=== PATIENT | female | born 1955 | race Caucasian/White ===

== ENCOUNTER 2020-03-08 15:47 | Outpatient (CLI) | payer OTHER, SELFPAY ==
--- NOTE | ~2020-03-08 | XR_ITS ---
XR chest 2V 03/08/2020 16:19 Indication: Worsening shortness of breath. Cough and fever. Procedure: 2 view chest Comparison: No prior studies for comparison. Findings: Bibasilar airspace disease, compatible with pneumonia. Small pleural effusions. No pneumoth orax or edema. No acute osseous abnormality. Impression: 1: Bibasilar pneumonia with small effusions. Reviewed, dictated and finalized at location A. Impression: 1: Bibasilar pneumonia with small effusions.
[2020-03-08 16:41] LABS: Basophils Absolute Auto 0.1 K/mm3 (0.0-0.1); Basophils Percent Auto 0.4 % (0.2-1.2); Eosinophils Percent Auto 0.1 % (0-4.4); Hematocrit 34.1 % (37.0-47.0); Hemoglobin 10.7 g/dL (12.0-15.0); Immature Granulocyte Absolute 0.05 K/mm3 (0.00-0.031); Immature Granulocyte Percent A 0.4 % (0-0.5); Lymphocytes Absolute Auto 0.89 K/mm3 (0.9-3.2); Lymphocytes Percent Auto 7.6 % (18.3-44.2); Mean Corpuscular HGB Conc 31.4 g/dl (32-36); Mean Corpuscular Volume 92.4 fl (80-100); Mean Platelet Volume 9.6 fl (7.4-10.4); Monocytes Absolute Auto 1.1 K/mm3 (0.1-0.6); Monocytes Percent Auto 9.6 % (2.6-8.5); Neutrophils Absolute Auto 9.6 K/mm3 (1.3-6.7); Neutrophils Percent Auto 81.9 % (45.5-73.1); Platelet Count Result 237 k/mm3 (150-375); Red Blood Count 3.69 M/mm3 (4.2-5.4); White Blood Count 11.8 K/mm3 (4.5-10.0)
[2020-03-08 16:52] LABS: Alanine Aminotransferase 29 U/L (4-35); Albumin Level 3.9 g/dL (3.5-5.1); Alkaline Phosphatase 137 U/L (38-126); Aspartate Amino Transferase 33 U/L (14-36); Bilirubin,Total 1.7 mg/dL (0.2-1.3); Blood Urea Nitrogen 7 mg/dL (7-17); Carbon Dioxide 29 mmol/L (22-30); Chloride 98 mmol/L (98-107); Estimated Glomerular Filt Rate > 60; Glucose 99 mg/dL (65-105); Potassium 2.9 mmol/L (3.4-5.0); Sodium 134 mmol/L (137-145)
== END 2020-03-08 15:48 | disposition home or self-care (01) ==
LOC: ANHIMG 15:54
PROVIDERS: PCP Internal Medicine; Visit Provider Internal Medicine
DX: R50.9 Fever, unspecified (principal); J44.1 Chronic obstructive pulmonary disease with (acute) exacerbation; J18.9 Pneumonia, unspecified organism; J90 Pleural effusion, not elsewhere classified
CPT/HCPCS: 36415; 71046; 80053; 85025

== ENCOUNTER 2020-04-25 13:00 | Outpatient (CLI) | payer OTHER, SELFPAY ==
--- NOTE | ~2020-04-25 | XR_ITS ---
EXAMINATION: XR chest 2V DATE: 04/25/2020 13:17 INDICATION: Shortness of breath. Pulmonary edema. TECHNIQUE: Frontal and lateral views of the chest were obtained. COMPARISON: Chest 2 views 03/08/2020 FINDINGS: There are small pleural effusions. There are airspace opacities in right lower lobe. There is mild atelectasis in right mid and lower lung zones and left lower lung zone. A calcified left lung nodule is consistent with old granulomatous disease. No pneumothorax. The heart size is normal. A ca theter overlying left abdomen is likely a nephrostomy tube. There are old healed bilateral rib fractu res. There are likely changes of distal left clavicle resection. IMPRESSION: 1. Worsened airspace opacities in right lower lobe, consistent with atelectasis versus pneumonia. 2. Small pleural effusions. Reviewed, dictated and finalized at location A.
[2020-04-25 14:05] LABS: Basophils Absolute Auto 0.1 K/mm3 (0.0-0.1); Basophils Percent Auto 0.7 % (0.2-1.2); Eosinophils Absolute Auto 0.4 K/mm3 (0-0.3); Eosinophils Percent Auto 5.1 % (0-4.4); Hematocrit 35.1 % (37.0-47.0); Hemoglobin 10.9 g/dL (12.0-15.0); Immature Granulocyte Absolute 0.02 K/mm3 (0.00-0.031); Immature Granulocyte Percent A 0.3 % (0-0.5); Lymphocytes Percent Auto 18.4 % (18.3-44.2); Mean Corpuscular HGB Conc 31.1 g/dl (32-36); Mean Corpuscular Hemoglobin 27.2 pg (26-34); Mean Corpuscular Volume 87.5 fl (80-100); Monocytes Absolute Auto 0.7 K/mm3 (0.1-0.6); Monocytes Percent Auto 9.2 % (2.6-8.5); Neutrophils Percent Auto 66.3 % (45.5-73.1); Platelet Count Result 186 k/mm3 (150-375); Red Blood Count 4.01 M/mm3 (4.2-5.4); Red Cell Distribution Width 14.9 % (11.5-14.5); White Blood Count 7.6 K/mm3 (4.5-10.0)
[2020-04-25 14:09] LABS: Add Urine Microscopic? YES; Appearance Urine Clear (Clear); Bacteria Urine Trace /hpf; Bilirubin Urine Negative (Negative); Blood Urine 1+ (Negative); Color Urine Yellow (Yellow); Glucose Urine UA Negative (Negative); Ketones Urine Trace mg/dL (Negative); Leukocyte Esterase Ur Negative LEU/UL (NEGATIVE); Mucus Urine Rare /lpf; Nitrate Urine Negative (Negative); Protein Urine Negative (Negative); RBC Urine 0-2 /hpf (0-2); Specific Grav Ur 1.016 (1.001-1.035); Squamous Epithelial Cell Urine Rare /hpf (Few); Urobilinogen Urine Negative mg/dL (<2.0); WBC Urine 0-3 /hpf (0-3)
[2020-04-25 14:20] LABS: Alanine Aminotransferase 9 U/L (4-35); Albumin Level 3.9 g/dL (3.5-5.1); Alkaline Phosphatase 77 U/L (38-126); Aspartate Amino Transferase 21 U/L (14-36); Bilirubin,Total 0.6 mg/dL (0.2-1.3); Blood Urea Nitrogen 10 mg/dL (7-17); Carbon Dioxide 29 mmol/L (22-30); Chloride 101 mmol/L (98-107); Estimated Glomerular Filt Rate > 60; Glucose 85 mg/dL (65-105); Potassium 3.2 mmol/L (3.4-5.0); Sodium 135 mmol/L (137-145)
[2020-04-25 14:24] LABS: D Dimer 3.78 ug/mL (<0.48)
[2020-04-25 14:35] LABS: NT Pro B Type Natriuretic Pept 1130 PG/ML (5-100)
== END 2020-04-25 13:01 | disposition home or self-care (01) ==
PROVIDERS: PCP Internal Medicine; Visit Provider Internal Medicine
DX: R06.02 Shortness of breath (principal); R60.9 Edema, unspecified; R91.8 Other nonspecific abnormal finding of lung field; J90 Pleural effusion, not elsewhere classified
CPT/HCPCS: 36415; 71046; 80053; 81001; 83880; 85025; 85380

== ENCOUNTER 2020-04-26 13:19 | Outpatient (CLI) | payer OTHER, SELFPAY ==
--- NOTE | ~2020-04-26 | US_ITS ---
EXAMINATION: US venous doppler [facility] DATE: 04/26/2020 14:13 INDICATION: Bilateral lower limb edema TECHNIQUE: [place] scale images without and with compression and Doppler images of the bilateral lower e xtremity veins were obtained. COMPARISON: None FINDINGS: The right common femoral vein, profunda femoral vein, femoral vein, popliteal vein, peroneal trunk, p osterior tibial veins, and greater saphenous vein are patent. The left common femoral vein, profunda femoral vein, femoral vein, popliteal vein, peroneal trunk, po sterior tibial veins, and greater saphenous vein are patent. IMPRESSION: 1. Patent bilateral lower extremity veins. No evidence of deep venous thrombosis. Reviewed, dictated and finalized at location A. IMPRESSION: 1. Patent bilateral lower extremity veins. No evidence of deep venous thrombosi s.
== END 2020-04-26 13:20 | disposition home or self-care (01) ==
PROVIDERS: PCP Internal Medicine; Visit Provider Internal Medicine
DX: R60.9 Edema, unspecified (principal)
CPT/HCPCS: 93970

== ENCOUNTER 2020-06-24 10:48 | Outpatient (CLI) | payer OTHER, SELFPAY ==
--- NOTE | ~2020-06-24 | CT_ITS ---
EXAMINATION: CT chest w con DATE: 06/24/2020 11:39 INDICATION: Recurrent right lower lobe pneumonia TECHNIQUE: Transaxial computed tomographic images of the chest were obtained after the administration of 75 cc of Omnipaque 350 intravenous contrast. The dose-length product (DLP) was 113.67 mGy-cm. Ite rative reconstruction was used. COMPARISON: None FINDINGS: There is severe emphysema. There is subpleural atelectasis or scarring in the right lower l obe. No suspicious pulmonary nodule is identified. A calcified subpleural nodule of the left lower lo be is consistent with old granulomatous disease. There is no pleural effusion or pneumothorax. No pat hologically enlarged thoracic lymph nodes are identified. The heart size is normal. Healed right-side d rib fractures are noted. There is mild thoracic spondylosis. IMPRESSION: 1. Atelectasis or scarring of the right lower lobe without suspicious findings. 2. Severe emphysema. Reviewed, dictated and finalized at location A.
[2020-06-24 11:07] LABS: Basophils Percent Auto 0.4 % (0.2-1.2); Eosinophils Absolute Auto 0.2 K/mm3 (0-0.3); Eosinophils Percent Auto 2.2 % (0-4.4); Hematocrit 34.5 % (37.0-47.0); Hemoglobin 11.1 g/dL (12.0-15.0); Immature Granulocyte Absolute 0.03 K/mm3 (0.00-0.031); Immature Granulocyte Percent A 0.4 % (0-0.5); Lymphocytes Absolute Auto 2.43 K/mm3 (0.9-3.2); Lymphocytes Percent Auto 29.1 % (18.3-44.2); Mean Corpuscular HGB Conc 32.2 g/dl (32-36); Mean Corpuscular Hemoglobin 28.2 pg (26-34); Mean Corpuscular Volume 87.6 fl (80-100); Mean Platelet Volume 9.4 fl (7.4-10.4); Monocytes Absolute Auto 0.8 K/mm3 (0.1-0.6); Monocytes Percent Auto 9.8 % (2.6-8.5); Neutrophils Absolute Auto 4.9 K/mm3 (1.3-6.7); Neutrophils Percent Auto 58.1 % (45.5-73.1); Platelet Count Result 269 k/mm3 (150-375); Red Blood Count 3.94 M/mm3 (4.2-5.4); Red Cell Distribution Width 16.4 % (11.5-14.5); White Blood Count 8.3 K/mm3 (4.5-10.0)
[2020-06-24 11:20] LABS: Alanine Aminotransferase 17 U/L (4-35); Alkaline Phosphatase 86 U/L (38-126); Anion Gap 7 mmol/L (8-16); Aspartate Amino Transferase 20 U/L (14-36); Bilirubin,Total 0.5 mg/dL (0.2-1.3); Blood Urea Nitrogen 18 mg/dL (7-17); Calcium 9.4 mg/dL (8.4-10.2); Carbon Dioxide 31 mmol/L (22-30); Chloride 99 mmol/L (98-107); Cholesterol 189 mg/dL (0-200); Estimated Glomerular Filt Rate > 60; Glucose 69 mg/dL (65-105); HDL Direct 73 mg/dL; Potassium 3.2 mmol/L (3.4-5.0); Sodium 137 mmol/L (137-145); Triglycerides 97 mg/dL (<150)
[2020-06-24 11:29] LABS: Estimated Glomerular Filt Rate > 60
[2020-06-24 11:31] LABS: LDL Cholesterol Direct 89 mg/dL
== END 2020-06-24 10:49 | disposition home or self-care (01) ==
LOC: ANHIMG 10:51
PROVIDERS: PCP Internal Medicine; Visit Provider Internal Medicine
DX: J18.9 Pneumonia, unspecified organism (principal); J96.11 Chronic respiratory failure with hypoxia; J43.9 Emphysema, unspecified
CPT/HCPCS: 36415; 71260; 80053; 80061; 85025; Q9967

== ENCOUNTER 2020-08-21 15:15 | Emergency (ER) | payer MEDICARE, OTHER, SELFPAY ==
--- NOTE | ~2020-08-21 | XR_ITS ---
EXAMINATION: XR chest 1V portable INDICATION: Chest pain TECHNIQUE: Portable AP chest at 1623 hours COMPARISON: 04/25/2020 FINDINGS: The lungs are free of acute opacities. No pleural effusion or pneumothorax is identified. T he cardiomediastinal silhouette is normal. Healed bilateral rib fractures are noted. IMPRESSION: 1. No acute cardiopulmonary abnormality. Reviewed, dictated and finalized at location A.
--- NOTE | ~2020-08-21 | CT_ITS ---
EXAMINATION: CT abdomen pelvis w con EXAM DATE: 08/21/2020 17:57 INDICATION: Weakness, nausea and vomiting. Gastric surgery 3 days ago. TECHNIQUE: Spiral CT of the abdomen and pelvis was performed following intravenous injection of 100 m L Omnipaque 350. Axial, coronal and sagittal images were reviewed. The dose-length product (DLP) fo r this examination was 249.69 mGy-cm. The exposure was tailored according to patient size (auto mA e xposure control), and iterative reconstruction (ASIR) was used as additional dose reduction technique . There is no prior study for comparison. FINDINGS: There are laparotomy casi are. There is inflammation and edema along the gastric body, a nd also along the distal aspect of the esophagus. There is pocket of fluid below the duodenal sweep, in the retroperitoneum, region measuring about 2 x 6 cm. No free intraperitoneal air or abscess. The liver, spleen, adrenal glands and pancreas are unremarkable. Gallbladder is unremarkable. No bilia ry obstruction. Portal and splenic veins are patent. Kidneys enhance symmetrically. There is no hy dronephrosis. Enhancing bilateral ureteral urothelium, could indicate upper urinary tract infection, or could be reactive. The uterus is unremarkable. The bladder is collapsed with Madrid catheter bal loon anchor inside. There is no retroperitoneal or pelvic lymphadenopathy. There is mild to modera te scattered arteriosclerotic disease. The appendix is normal. There is partial colectomy with intact rectosigmoid anastomosis site. No f ree intraperitoneal gas. The heart is normal in size. There are no pericardial or pleural effusion s. There is basilar atelectasis bronchiectasis. There are no osteoblastic or osteolytic lesions johnny ntified. IMPRESSION: 1. Gastric body edema, could be due to recent surgical site. 2. Retroperitoneal fluid pocket, could be postoperative seroma but infected fluid not excludable. 3. Distal esophageal edema probably esophagitis. 4. Bilateral urothelial enhancement, correlate with urinalysis. Ureteral tubes and Madrid catheter in position. Reviewed, dictated and finalized at location A. IMPRESSION: 1. Gastric body edema, could be due to recent surgical site. 2. Retroperitoneal fluid pocket, could be postoperative seroma but infected fl uid not excludable. 3. Distal esophageal edema probably esophagitis. 4. Bilateral urothelial enhancement, correlate with urinalysis. Ureteral tubes and Madrid catheter in position.
[2020-08-21 15:37] VITALS: BP 128/58; PULSE 100; RESP 14; TEMP 36.4; O2SAT 100
--- NOTE | 2020-08-21 15:43 | ECG_ITS ---
Measurements Intervals [place] Rate: 94 P: 47 ND: 103 QRS: 37 QRSD: 74 T: -18 QT: 380 QTc: 476 Interpretive Statements SINUS RHYTHM WITH SHORT ND INTERVAL INCOMPLETE RIGHT BUNDLE BRANCH BLOCK BORDERLINE ST-T WAVE ABNORMALITY- DIFFUSE LEADS BASELINE ARTIFACT- I, II, AVR, AVL, V1, V6 BORDERLINE ECG Electronically Signed On 08-21-2020 15:59:50 CDT by Moreno Agarwal D.O.
--- NOTE | 2020-08-21 15:55 | ED.GENADULT ---
HPI - General Adult General Chief complaint: Recheck/Abnormal Lab/Rx Stated complaint: WEAK,N/V S/P GASTRIC SURGERY AT [facility] Time Seen by Provider: 08/21/20 15:47 Source: patient and family Mode of arrival: ambulatory Limitations: no limitations History of Present Illness HPI narrative: 64 years old white female brought to the emergency room by her daughter because urine leaking around the Madrid catheter, with burning sensation, nausea and vomiting started last night. Patient denies any fever, chills, abdominal pain, chest pain, shortness of breath, back pain. Patient is a status post reverse colostomy, bladder repair, hernia repair at [facility]. Patient was admitted on August 15 and was discharged yesterday. Patient had Madrid catheter placed on August 15. Last night patient developed nausea, frequent vomiting, urine leaking from the urethra around the Madrid catheter, severe burning sensation at the urethra. Patient on 2 L home oxygen, Patient was referred to our emergency room today by her surgeon at [facility], Alin Tamez. History of hypertension, COPD. Does not take blood thinners. Does not smoke or drink. Multiple negative COVID 19 test in the last few days Related Data Home Medications Medication Instructions Recorded Confirmed acetaminophen 1,000 mg BID 08/21/20 08/21/20 clonazepam BID 08/21/20 enoxaparin DAILY 08/21/20 fluticasone propionate [Flovent 2 INHALATION BID 08/21/20 HFA] fluticasone propionate [Flovent INHALATION 08/21/20 HFA] guaifenesin mg PO BID 08/21/20 hydrochlorothiazide DAILY 08/21/20 ipratropium-albuterol ml INHALATION QID 08/21/20 lisinopril DAILY 08/21/20 melatonin mg HS 08/21/20 metoprolol tartrate BID 08/21/20 oxycodone TID PRN 08/21/20 potassium chloride [Klor-Con M20] meq PO DAILY 08/21/20 tiotropium-olodaterol [Stiolto 1 INHALATION DAILY 08/21/20 Respimat] trazodone HS 08/21/20 Allergies Allergy/AdvReac Type Severity Reaction Status Date / Time No Known Allergies Allergy Unverified 04/03/16 10:22 Review of Systems Review of Systems: Narrative: CONSTITUTIONAL: Denies fever, chills, or sweats. EYES: Denies visual changes, redness, or discharge. ENT: Denies rhinorrhea, congestion, sore throat, or otalgia. CARDIOVASCULAR: Denies chest pain, palpitations, or edema. RESPIRATORY: Denies cough or dyspnea. GASTROINTESTINAL: Denies abdominal pain, nausea, vomiting, or diarrhea. GENITOURINARY: Severe burning sensation at the urethra SKIN: Denies rash or itching. MUSCULOSKELETAL: Denies back pain, joint pain, or myalgia. NEUROLOGIC: Denies headache, numbness, or weakness. PSYCHIATRIC: Denies anxiety or depression. [facility] Past Medical History Medical History (Updated 08/21/20 @ 18:37 by Kenton Denise MD) COPD (chronic obstructive pulmonary disease) Hypertension Social History Social History (Updated 08/21/20 @ 18:10 by Kenton Denise MD) Social History: Patient does not smoke or drink Second hand tobacco smoke exposure: No Gender identity (if verbalized by the patient): Female Exam Narrative: Exam Narrative: General appearance: Well-developed, well-nourished does not look in pain or distress Skin: Normal color Head: Normocephalic, nontraumatic Eyes: Clear conjunctiva ENT: Oropharynx normal, ears normal, nose normal Neck: Supple, nontender Chest and respiratory: Airway patent, no respiratory distress, no accessory muscle use Heart: Regular rate/rhythm Abdomen: Soft, mild diffuse tenderness, no organomegaly, quiet bowel sounds, stableS surgical wound, clean and dry Vascular: Normal peripheral pulses, normal capillary refill. Musculoskeletal: Normal range of motion, nontender back Neurologic: Alert and oriented ?3, [employer] is normal as tested, no gross motor deficit
[2020-08-21 16:27] VITALS: BP 128/58; PULSE 92; RESP 18; TEMP 36.4; O2SAT 96
--- NOTE | 2020-08-21 16:30 | PC.NURSE ---
patient here this ED with c/o N/V and abdomen pain. see triage notes. alert. oriented but does appear weak. daughter at bedside. gives patient's hx and answers questions for patient. patient was admitted to [facility]. had 3-4 abdominal surgeries during her admission there. discharged yesterday. denies known fever at home. daughter has been talking with nursing staff and physicians at [facility]. patient was advised to come there for admission but they do not have any available beds. patient and daughter both state they were advised to come to the closest ED to be stablized for transfer to [facility]. Not here for admission. ED provider talking with daughter now.
--- NOTE | 2020-08-21 16:32 | PC.NURSE ---
Attempts x2 per this RN for IV start unsuccessful. . Labs drawn per MAITE Garces.
[2020-08-21 16:39] LABS: Basophils Absolute Auto 0.1 K/mm3 (0.0-0.1); Basophils Percent Auto 0.5 % (0.2-1.2); Eosinophils Percent Auto 0.4 % (0-4.4); Hematocrit 26.9 % (37.0-47.0); Hemoglobin 8.8 g/dL (12.0-15.0); Immature Granulocyte Absolute 0.13 K/mm3 (0.00-0.031); Immature Granulocyte Percent A 1.2 % (0-0.5); Lymphocytes Absolute Auto 1.22 K/mm3 (0.9-3.2); Lymphocytes Percent Auto 11.4 % (18.3-44.2); Mean Corpuscular HGB Conc 32.7 g/dl (32-36); Mean Corpuscular Hemoglobin 29.9 pg (26-34); Mean Corpuscular Volume 91.5 fl (80-100); Mean Platelet Volume 9.1 fl (7.4-10.4); Monocytes Absolute Auto 0.8 K/mm3 (0.1-0.6); Monocytes Percent Auto 7.7 % (2.6-8.5); Neutrophils Absolute Auto 8.5 K/mm3 (1.3-6.7); Neutrophils Percent Auto 78.8 % (45.5-73.1); Platelet Count Result 442 k/mm3 (150-375); Red Blood Count 2.94 M/mm3 (4.2-5.4); Red Cell Distribution Width 15.1 % (11.5-14.5); White Blood Count 10.7 K/mm3 (4.5-10.0)
[2020-08-21 16:48] LABS: INR 0.9; Prothrombin Time 12.3 Seconds (11.1-14.7)
[2020-08-21 16:49] LABS: Partial Thromboplastin Time 26.2 SECONDS (22.3-36.8)
--- NOTE | 2020-08-21 16:49 | PC.NURSE ---
patient is difficulty stick. this RN attempted x 2 without success. Paresh RN at bedside and unsuccessful x 2. will attempt with Ultrasound.
[2020-08-21 16:57] LABS: Alanine Aminotransferase 20 U/L (4-35); Albumin Level 3.6 g/dL (3.5-5.1); Alkaline Phosphatase 145 U/L (38-126); Anion Gap 15 mmol/L (8-16); Aspartate Amino Transferase 27 U/L (14-36); Bilirubin,Total 0.7 mg/dL (0.2-1.3); Blood Urea Nitrogen 6 mg/dL (7-17); Calcium 8.9 mg/dL (8.4-10.2); Carbon Dioxide 26 mmol/L (22-30); Chloride 96 mmol/L (98-107); Estimated Glomerular Filt Rate > 60; Glucose 99 mg/dL (65-105); Lipase 37 U/L (23-300); Potassium 2.6 mmol/L (3.4-5.0); Sodium 137 mmol/L (137-145)
[2020-08-21 17:03] LABS: Troponin I < 0.012 ng/mL (0.000-0.034)
[2020-08-21] MEDS: ONDANSETRON INJ 4 MG/2 ML VIAL IV PUSH (17:11)
[2020-08-21] MEDS: MORPHINE SULFATE (*CRX) 4 MG/ML INJ IV PUSH (17:11)
[2020-08-21] MEDS: SODIUM CHLORIDE 0.9% IV 1,000 ML 999 ML IV CONT (17:13)
[2020-08-21 17:38] LABS: Add Urine Microscopic? YES; Amorphous Sediment Urine Few; Appearance Urine Cloudy (Clear); Bacteria Urine 2+ /hpf; Bilirubin Urine Negative (Negative); Blood Urine 3+ (Negative); Color Urine Yellow (Yellow); Glucose Urine UA Negative (Negative); Hyaline Casts Urine 30-49 /lpf; Ketones Urine 2+ mg/dL (Negative); Leukocyte Esterase Ur 3+ LEU/UL (Negative); Mucus Urine Heavy /lpf; Nitrate Urine Negative (Negative); Protein Urine 3+ mg/dL (Negative); RBC Urine >75 /hpf (0-2); Specific Grav Ur 1.015 (1.001-1.035); Urobilinogen Urine Negative mg/dL (<2.0); WBC Urine >75 /hpf
[2020-08-21 18:11] VITALS: PULSE 109; RESP 13; O2SAT 96
[2020-08-21 18:15] VITALS: PULSE 107; RESP 15; O2SAT 95
[2020-08-21 18:16] VITALS: BP 133/81; PULSE 108; RESP 13; O2SAT 95
--- NOTE | 2020-08-21 18:40 | PC.NURSE ---
spoke with Tylor at [facility] intake line for transfer. information given to transfer RN. will also need all the patient's imaging on a disc for transfer.
[2020-08-21 20:03] VITALS: BP 135/85; PULSE 102; RESP 14; O2SAT 97
[2020-08-22 00:18] VITALS: BP 134/82; PULSE 98; RESP 16; TEMP 36.6; O2SAT 96
--- NOTE | 2020-08-22 00:24 | PC.NURSE ---
called [facility] to request transport. ETA [id number]
--- NOTE | 2020-08-22 00:26 | PC.NURSE ---
report to Linda NAYLOR at [facility], transport called.
--- NOTE | 2020-08-22 02:18 | PC.NURSE ---
[facility] called and update ETA to [phone]
[2020-08-22 02:51] VITALS: BP 138/86; PULSE 89; RESP 16; O2SAT 96
[2020-08-22] MEDS: ONDANSETRON INJ 4 MG/2 ML VIAL IV PUSH (02:52)
--- NOTE | 2020-08-22 03:32 | PC.NURSE ---
called [facility] for update ETA. ETA 45 minutes.
[2020-08-22 05:18] VITALS: BP 134/78; PULSE 98; RESP 16; TEMP 36.7; O2SAT 96
== END 2020-08-22 05:19 | disposition short-term general hospital (02) ==
PROVIDERS: Emergency Provider Emergency Medicine; PCP Internal Medicine
DX: N39.0 Urinary tract infection, site not specified (principal); R11.10 Vomiting, unspecified; E87.6 Hypokalemia; I10 Essential (primary) hypertension; J44.9 Chronic obstructive pulmonary disease, unspecified; Z99.81 Dependence on supplemental oxygen; I45.10 Unspecified right bundle-branch block; R94.31 Abnormal electrocardiogram [ECG] [EKG]; R93.3 Abnormal findings on diagnostic imaging of other parts of digestive tract
CPT/HCPCS: 36415; 71045; 74177; 80053; 81001; 83690; 84484; 85025; 85610; 85730; 87077; 87086; 87088; 87186; 93005; 96361; 96365; 96366; 96368; 96375; 99285; J0696; J2270; J2405; J3480; J7030; Q9967